=== PATIENT | female | born 1995 | race Caucasian/White ===

== ENCOUNTER 2019-09-29 05:45 | Emergency (ER) | payer MEDICAID ==
[~2019-09-29] VITALS: Ht 160 cm; Wt 73.6 kg
[2019-09-29 05:54] VITALS: TEMP 98.6
[2019-09-29 06:45] LABS: COLLECTION METHOD CLEAN CATCH
[2019-09-29 06:50] LABS: BASO % 0.3 % (0.0-2.0); EOS # 0.1 (0.0-0.7); GRAN % 59.7 % (42.2-75.2); HEMATOCRIT 38.9 % (37.0-47.0); HEMOGLOBIN 12.8 g/dl (12.5-16.0); LYMPH # 3.5 (1.2-3.4); LYMPH % 29.5 % (20.0-51.0); MEAN CELL VOLUME 84 fl (80.0-100.0); MEAN CORPUSCULAR HEMOGLOBIN 28 pg (27.0-31.0); MEAN CORPUSCULAR HGB CONC 33 g/dl (33.0-37.0); MONO # 1.1 (0.1-0.6); MONO % 9.2 % (1.7-9.3); PLATELET COUNT 302 K/mm3 (130-400); RED BLOOD COUNT 4.63 M/mm3 (4.10-5.30); REDCELL DISTRIBUTION WIDTH-CV 14.2 % (11.5-14.5)
[2019-09-29 06:54] LABS: MUCOUS Present /lpf; PH 5 (5-8); SQUAMOUS EPITHELIAL 0-2 /hpf; URINE APPEARANCE Clear; URINE BACTERIA None Seen /hpf; URINE BILIRUBIN Negative (NEGATIVE); URINE BLOOD Negative (NEGATIVE); URINE COLOR Yellow; URINE GLUCOSE Negative (NEGATIVE); URINE KETONE Trace (NEGATIVE); URINE LEUKOCYTE ESTERASE Negative (NEGATIVE); URINE NITRATE Negative (NEGATIVE); URINE PROTEIN(semi-quant) Negative (NEGATIVE); URINE RBC 0-2 /hpf; URINE UROBILINOGEN Negative (NEGATIVE)
[2019-09-29 07:07] LABS: ALBUMIN 3.9 gm/dL (3.5-5.0); BILIRUBIN,TOTAL 0.4 mg/dL (0.0-1.0); C-REACTIVE PROTEIN 0.7 mg/dL (0.0-0.9); CALCIUM 9.1 mg/dL (8.4-10.2); CREATININE, serum 0.58 (0.52-1.25); MAGNESIUM 2.1 mg/dL (1.6-2.3); POTASSIUM 3.5 mmol/L (3.4-5.0)
[2019-09-29 07:34] LABS: THYROID STIMULATING HORMONE 3.27 uIU/mL (0.465-4.680)
[2019-09-29 08:27] VITALS: BP 107/76; PULSE 87
== END 2019-09-29 08:27 | disposition home or self-care (01) ==
LOC: COL.ER 05:45
PROVIDERS: Emergency Medicine
DX: R10.2 Pelvic and perineal pain (principal)
CPT/HCPCS: J7030

== ENCOUNTER 2019-11-03 18:35 | Emergency (ER) | payer MEDICAID ==
[~2019-11-03] VITALS: Ht 160 cm; Wt 72.7 kg
[2019-11-03 18:54] VITALS: TEMP 99.2
[2019-11-03] MEDS ORDERED: PRENATAL TABLET PO (18:57)
[2019-11-03 19:24] LABS: COLLECTION METHOD CLEAN CATCH
[2019-11-03 19:33] LABS: BASO % 0.2 % (0.0-2.0); EOS % 0.4 % (0-4.0); GRAN # 6.8 (1.4-6.5); GRAN % 70.8 % (42.2-75.2); HEMATOCRIT 43.1 % (37.0-47.0); HEMOGLOBIN 14.2 g/dl (12.5-16.0); LYMPH % 20.9 % (20.0-51.0); MEAN CELL VOLUME 85 fl (80.0-100.0); MEAN CORPUSCULAR HEMOGLOBIN 28 pg (27.0-31.0); MEAN CORPUSCULAR HGB CONC 33 g/dl (33.0-37.0); MEAN PLATELET VOLUME 9.3 fl (7.4-10.4); MONO # 0.7 (0.1-0.6); MONO % 7.5 % (1.7-9.3); PLATELET COUNT 304 K/mm3 (130-400); RED BLOOD COUNT 5.07 M/mm3 (4.10-5.30); REDCELL DISTRIBUTION WIDTH-CV 14.2 % (11.5-14.5)
[2019-11-03 19:36] LABS: PH 8 (5-8); SQUAMOUS EPITHELIAL 0-2 /hpf; URINE APPEARANCE Clear; URINE BACTERIA None Seen /hpf; URINE BILIRUBIN Negative (NEGATIVE); URINE BLOOD Negative (NEGATIVE); URINE COLOR Colorless; URINE GLUCOSE Negative (NEGATIVE); URINE KETONE Negative (NEGATIVE); URINE LEUKOCYTE ESTERASE Negative (NEGATIVE); URINE NITRATE Negative (NEGATIVE); URINE PROTEIN(semi-quant) Negative (NEGATIVE); URINE RBC None Seen /hpf; URINE UROBILINOGEN Negative (NEGATIVE)
[2019-11-03 19:47] LABS: ALBUMIN 4.2 gm/dL (3.5-5.0); BILIRUBIN,TOTAL 0.4 mg/dL (0.0-1.0); C-REACTIVE PROTEIN 1.3 mg/dL (0.0-0.9); CALCIUM 9.6 mg/dL (8.4-10.2); CREATININE, serum 0.51 (0.52-1.25); TOTAL PROTEIN 7.3 gm/dL (6.4-8.2)
[2019-11-03 21:03] VITALS: BP 111/79; PULSE 72
== END 2019-11-03 21:10 | disposition home or self-care (01) ==
LOC: COL.ER 18:35
PROVIDERS: Emergency Medicine
DX: O26.852 Spotting complicating pregnancy, second trimester (principal); O21.9 Vomiting of pregnancy, unspecified; O26.892 Other specified pregnancy related conditions, second trimester; R10.2 Pelvic and perineal pain; Z3A.15 15 weeks gestation of pregnancy
CPT/HCPCS: J2550; J7030

== ENCOUNTER 2020-03-07 12:16 | Outpatient (CLI) | payer MEDICAID ==
[~2020-03-07 12:16] MED LIST: PRENATAL TABLET PO
--- NOTE | 2020-03-07 12:20 | NUR ---
Patient ambulatory to LR6 and changed into gown. Patient sent from [facility], see physician documentation. Patient denies leaking of fluid/vaginal bleeding/regular contractions/decreased movement. 1225: This RN and Jennifer NAVA at bedside and monitors applied. 1230: Dr. Galloway at bedside and SONO done at this time and FHR found lower right abdomen. Dr. Mayer at bedside and plan of care discussed for transfer to [facility]. Questions answered. 1235: IV started in left hand and flushed. 1251: Magnesium 4mg bolus started in left hand. 1252: IV started in right hand and LR started at this time. 1255: Garcia catheter placed and patient tolerates well. 1312: 2G of Magnesium started at this time in right hand.
--- NOTE | 2020-03-07 12:20 | NUR ---
Patient ambulatory to LR6 and changed into gown. 1225: This RN and Jennifer RN at bedside and monitors on. Difficulty tracing FHR. 1230: Dr. Galloway at bedside and SONO done at this time. FHR located low right abdomen. Dr. Mayer at bedside and assessing patient and FHR. Discusses plan of care and transfer to [facility] with patient and questions answered. Patient agrees with plan of care. Orders received from physician. 1235: IV started in left hand and flushed. 1251: Magnesium 4mg bolus started in left hand. See EMAR. 1252: IV started in right hand and LR infusing at this time. 1255: Garcia catheter placed and patient tolerates well. 1312: Magnesium 2g started and connected to right hand. 1315: FHR baseline 155-160bpm with minimal variability noted. FHR variable decleration decreased to 65bpm for approx. 40 seconds and returns baseline. 1320: Transport team here and given report. 1336: Patient off monitor and assisted onto stretcher. 1345: Patient off unit with transport team. [facility] nurse given report.
[2020-03-07 12:25] VITALS: BP 134/77; PULSE 82; TEMP 98.2
[2020-03-07 13:00] VITALS: BP 111/71; PULSE 96
[2020-03-07 13:15] VITALS: BP 108/62; PULSE 88
[2020-03-07 13:30] VITALS: BP 105/61; PULSE 105
== END 2020-03-07 13:45 ==
LOC: LDRO 12:16
DX: O35.8XX0 Maternal care for other (suspected) fetal abnormality and damage, not applicable or unspecified (principal); Z3A.30 30 weeks gestation of pregnancy
CPT/HCPCS: J3475; J7120